=== PATIENT | female | born 1975 | race African-American/Black ===

== ENCOUNTER 2016-05-25 08:00 | Emergency (ER) ==
[2016-05-25 08:22] LABS: MANUAL DIFF NEEDED? NO
[2016-05-25] MEDS ORDERED: CATAPRES-TTS-2 TD ONE (08:22)
[2016-05-25 08:24] LABS: BASO% 0.2 % (0.0-0.8); EOS# 0.01 X1000 (0.0-0.7); EOS% 0.2 % (0.0-10.0); HEMATOCRIT 33.4 % (37.0-47.0); HEMOGLOBIN 10.1 g/dL (12.0-16.0); IMM GRAN# 0.05 X1000 (0.0-0.04); IMM GRAN% 0.8 % (0.0-0.5); LYMPH% 36.1 % (20.5-51.1); MCH 26.6 PG (27-31); MCHC 30.2 g/dL (33-37); MCV 88.1 FL (81-99); MONO# 0.72 X1000 (0.11-0.59); MONO% 11.8 % (1.7-9.3); MPV 10.8 FL (7.4-10.4); NEUT% 50.9 % (42.2-75.2); PLT 236 X1000 (130-400); RBC 3.79 XMIL (4.2-5.4)
--- NOTE | 2016-05-25 08:26 | PROVIDER DOCUMENTATION ---
HPI-Psychological Disorder - General Chief Complaint: General Adult Stated Complaint: HTN,DEHYDRATION Time Seen by Provider: 05/25/16 08:19 Source: patient Allergies/Adverse Reactions: Patient Allergies Allergy/AdvReac Type Severity Reaction Status Date / Time No Known Allergies Allergy Verified 05/25/16 08:09 Home Medications: Home Medication List Medication Instructions Recorded Confirmed Last Taken Type Acetaminophen [Tylenol] 650 mg PO Q6H PRN PRN 05/25/16 05/25/16 Unknown History Benztropine [Cogentin] 1 mg PO TID 05/25/16 05/25/16 Unknown History Carbamazepine [Tegretol Liquid] 200 mg PO 4XDAY 05/25/16 05/25/16 Unknown History Chlorpromazine [Thorazine] 50 mg IM Q4H PRN PRN 05/25/16 05/25/16 05/25/16 04: 58 History Chlorpromazine [Thorazine] 100 mg PO TID 05/25/16 05/25/16 Unknown History Diphenhydramine [Benadryl] 50 mg PO QHS PRN 05/25/16 05/25/16 Unknown History Hydroxyzine 25 mg PO TID PRN 05/25/16 05/25/16 Unknown History Ibuprofen [Motrin] 600 mg PO Q6H PRN PRN 05/25/16 05/25/16 Unknown History Lorazepam [Ativan] 1 mg PO TID 05/25/16 05/25/16 Unknown History Mag Hydrox/Al Hydrox/Simeth 30 ml PO Q3H PRN PRN 05/25/16 05/25/16 Unknown History [Maalox Plus Liquid] Magnesium Hydroxide [Milk of 30 ml PO DAILY PRN 05/25/16 05/25/16 Unknown History Magnesia] Magnesium Oxide [Mag-Ox] 400 mg PO BID 05/25/16 05/25/16 Unknown History Multivit,Fe,Ca,FA & Min [Thera M 1 each PO DAILY 05/25/16 05/25/16 Unknown History Plus] Nicotine Patch [Nicoderm Patch] 21 mg TD DAILY 05/25/16 05/25/16 Unknown History Polyvinyl Alcohol Eye Drops 1 dose LEFT EYE 4XDAY 05/25/16 05/25/16 Unknown History [Tearisol Oph Solution] Trazodone [Desyrel] 50 mg PO QHS PRN 05/25/16 05/25/16 Unknown History Valproic Acid [Depakene Liquid] 2,000 mg PO BID 05/25/16 05/25/16 Unknown History - History of Present Illness-Psych Nature of Presenting Problem: sent with supposed dehydration associated with hypertension and peripheral edema Onset/Duration: reports: unsure Timing: reports: still present Severity: reports: mild Situational problems related to:: reports: other (mental patient) Psychiatric Complaints: reports: angry, altered mental status, hostile Previous psych related hospitalizations?: Yes Patient arrived by:: EMS called by patient Similar Symptoms Previously?: Yes Recently seen or treated by another doctor?: Yes Review of Systems - Adult - REVIEW OF SYSTEMS - ADULT ROS:: unobtainable per condition Constitutional: reports: no symptoms reported Eyes: reports: no symptoms reported Ears, Nose, Mouth & Throat: reports: no symptoms reported Cardiovascular: reports: no symptoms reported Respiratory: reports: no symptoms reported Gastrointestinal: reports: no symptoms reported Genitourinary: reports: no symptoms reported Musculoskeletal: reports: no symptoms reported Integumentary: reports: no symptoms reported Neurological: reports: no symptoms reported Psychiatric: reports: no symptoms reported Endocrine: reports: no symptoms reported Hematologic/Lymphatic: reports: no symptoms reported Allergic/Immunologic: reports: no symptoms reported All Other Systems: Reviewed and Negative Past History - Adult - PAST MEDICAL HISTORY-ADULT Review of Records: reports: Nursing Assessment Review, Medications Reviewed, Social history reviewed & non-contributory. Cardiovascular: reports: HTN Psychiatric: reports: psychiatric problems - SOCIAL HISTORY Smoking: denies Physical Exam-Psych Focus - Physical Exam-Psych Appearance: disheveled Neurological: agitated Behavior/Eye Contact/Speech: belligerent HENMT: normocephalic/atraumatic Neck: supple Respiratory: lungs clear, no respiratory distress, no accessory muscle use Cardiovascular: tachycardia Abdominal Exam: soft Back Exam: normal inspection Extremity: pedal edema Integumentary: normal color, normal turgor Progress - PLAN OF CARE/RESULTS Progress/Plan/Lab Results: Laboratory Tests 05/25/16 05/25/16 08:20 08:20 WBC 6.10 RBC 3.79 L Hgb 10.1 L Hct 33.4 L MCV 88.1 MCH 26.6 L MCHC 30.2 L RDW Std Deviation 15.9 H Plt Count 236 MPV 10.8 H Immature Gran % (Auto) 0.8 H Neut % (Auto) 50.9 Lymph % (Auto) 36.1 [place] % (Auto) 11.8 H Eos % (Auto) 0.2 Baso % (Auto) 0.2 Immature Gran # (Auto) 0.05 H Neut # (Auto) 3.11 Lymph # (Auto) 2.20 [place] # (Auto) 0.72 H Eos # (Auto) 0.01 Baso # (Auto) 0.01 Sodium 139 Potassium 4.2 Chloride 100 Carbon Dioxide 33 Anion Gap 7 BUN 8 Creatinine 0.7 Estimated GFR/1.73 m2 > 60 BUN/Creatinine Ratio 11 Glucose 97 Calculated Osmolality 276 Calcium 9.2 Total Bilirubin 0.20 AST 19 ALT 19 Alkaline Phosphatase 63 Total Protein 7.5 Albumin 3.6 Globulin 4.0 Albumin/Globulin Ratio 1.0 - XRAY 1 XRAY Study: Chest Impression: Normal Departure - Departure Time of Disposition Order: 09:33 DIAGNOSIS: Hypertension Qualifiers: Hypertension type: essential hypertension Qualified Code(s): I10 - Essential ( primary) hypertension Disposition: [facility] Certified Medical Emergency: Emergent Condition: Stable Additional Instructions: ED Follow Up Instructions: You have been treated by a care provider in the Emergency Department. These instructions are being provided to you so you can have an understanding of how to care for yourself upon discharge. Upon discharge from the Emergency Department, you are responsible for making arrangements for follow-up care by a physician of your choice. Take all prescribed medications as directed. Return to the Emergency Department immediately for any new or worsening symptoms. You may call the Physician Referral phone number at [phone] to obtain a list of Physicians who are taking new patients. Referrals: None,PCP [Primary Care Provider] -
[2016-05-25 08:38] LABS: AGAP 7; ALBUMIN 3.6 g/dL (3.5-5.0); ALKALINE PHOSPHATASE 63 U/L (32-104); BUN 8 mg/dL (8-22); CALCIUM 9.2 mg/dL (8.8-10.2); CHLORIDE 100 mmol/L (98-107); COSMO 276; GOT 19 U/L (10-30); GPT 19 U/L (10-36); POTASSIUM 4.2 mmol/L (3.5-5.1); SODIUM 139 mmol/L (136-145); TCO2 33 mmol/L (25-35); TOTAL PROTEIN 7.5 g/dL (6.3-8.3)
--- NOTE | 2016-05-25 08:42 | EKG Report ---
Test Performed on : 05/25/2016 08:10:53 AM Test Reason : elevated bp Blood Pressure : / mmHG Vent. Rate : 110 BPM Atrial Rate : 110 BPM P-R Int : 136 ms QRS Dur : 072 ms QT Int : 314 ms P-R-T Axes : 062 059 078 degrees QTc Int : 424 ms Sinus tachycardia. Nonspecific ST and T wave abnormality Abnormal ECG No previous ECGs available Unconfirmed Result
--- NOTE | 2016-05-25 08:46 | Diag Imaging Result Document ---
PROCEDURE NAME: CHEST-1 VIEW - 05/25/2016 CHEST SINGLE VIEW: FINDINGS: Poor inspiratory effort. There are no infiltrates. The vessels are not distended. Heart is borderline mildly prominent although this is an AP technique. No pleural effusions identified. IMPRESSION: Poor inspiration, otherwise negative exam.
[2016-05-25 09:57] VITALS: BP 152/98
== END 2016-05-25 10:10 ==
LOC: P.ED 08:00
DX: I10 Essential (primary) hypertension (principal); R41.82 Altered mental status, unspecified; R00.0 Tachycardia, unspecified; R60.9 Edema, unspecified; R45.5 Hostility; Z79.899 Other long term (current) drug therapy
CPT/HCPCS: 36415; 71010; 80053; 85025; 93005